=== PATIENT | male | born 1975 | race Caucasian/White ===

== ENCOUNTER 2018-01-25 16:53 | Emergency (ER) | payer OTHER, SELFPAY ==
[2018-01-25 16:58] VITALS: BP 128/76; PULSE 55; RESP 18; TEMP 36.8; O2SAT 97; BMI 29.2
[2018-01-25] MEDS: TET,DIPH,PERTUSS(ACELL),VAC/PF 0.5 ML SYRINGE IM (17:29)
--- NOTE | 2018-01-25 18:16 | ED_ITS ---
HPI - Wound/Laceration <LIVIER Lozano - Last Filed: 01/25/18 19:03> General Chief Complaint: Wound/Laceration Stated Complaint: gash above right eye Time Seen by Provider: 01/25/18 17:11 Source: patient and family Mode of arrival: ambulatory Limitations: no limitations History of Present Illness HPI narrative: This 42-year-old male who presents with chief complaint laceration above his right eye. He states this happened a problem 2 o'clock this afternoon. He states he took an elbow to the face while playing [employer]. He denies any loss of consciousness. Denies any headache dizziness or concussion symptoms. He denies having had a concussion from this. He is not sure when his last tetanus was. He denies any nausea vomiting diarrhea. He states he was going to Super glue the laceration at home but then his requested he come in. He states he bandaged it up. Related Data Allergies Allergy/AdvReac Type Severity Reaction Status Date / Time No Known Drug Allergies Allergy Verified 01/25/18 17:27 Review of Systems <LIVIER Lozano - Last Filed: 01/25/18 19:03> Review of Systems GENERAL: Denies chills, fatigue, malaise, fever, sweats. HEENT: Denies sinus pain, ear pain, sore throat, difficulty swallowing, dizziness. RESPIRATORY: Denies dyspnea, cough, wheezing, hemoptysis, sputum. CARDIOVASCULAR: Denies chest pain, palpitations, orthopnea, edema, GASTROINTESTINAL: Denies nausea, vomiting, abdominal pain, diarrhea, constipation, melena. : Denies dysuria, frequency, incontinence, hematuria, urinary retention. MUSCULOSKELETAL: denies weakness, joint pain, or bony pain SKIN: See HPI NEUROLOGIC: See HPI PSYCHIATRIC: No concerning psychosocial issues. 12 point review of systems is negative except for those stated above Exam <LIVIER Lozano - Last Filed: 01/25/18 19:03> Narrative Exam Narrative: GENERAL: This is a well-nourished, well-developed patient, in no acute distress. HEAD: Atraumatic. Normocephalic. No temporal or scalp tenderness. No pain to palpation of facial bones. EYES: Pupils equal round and reactive. Extraocular motions intact. No scleral icterus. No injection or drainage. ENT: Nose without bleeding, purulent drainage or septal hematoma. Throat without erythema, tonsillar hypertrophy or exudate. Uvula midline. Airway patent. NECK: Trachea midline. No JVD or lymphadenopathy. Supple, nontender, no meningeal signs. CARDIOVASCULAR: Regular rate and rhythm without murmurs, gallops, or rubs. RESPIRATORY: Clear to auscultation. Breath sounds equal bilaterally. No wheezes , rales, or rhonchi. GASTROINTESTINAL: Abdomen soft, non-tender, nondistended. No hepato-splenomegaly , or palpable masses. No guarding. EXTREMITIES: No clubbing, cyanosis, or edema. No joint tenderness, effusion, or edema noted. BACK: Nontender without deformity or crepitance. No flank tenderness. NEURO: AOx3. No slurred speech. Stable on feet. SKIN: 1.5 cm well-approximated laceration just above right eyebrow. Slight curve noted. Upon initial examination, bleeding is controlled. Laceration appears to have scabbed over other than top 3 mm of laceration. No obvious foreign bodies. No tendon or muscle involvement. Initial Vital Signs Initial Vital Signs: Vital Signs Temperature 98.2 F 01/25/18 16:58 Pulse Rate 55 L 01/25/18 16:58 Respiratory Rate 18 01/25/18 16:58 Blood Pressure 128/76 01/25/18 16:58 Pulse Oximetry 97 01/25/18 16:58 <Sola Magaña DO - Last Filed: 01/26/18 08:17> Initial Vital Signs Initial Vital Signs: Vital Signs Temperature 98.2 F 01/25/18 16:58 Pulse Rate 55 L 01/25/18 16:58 Respiratory Rate 18 01/25/18 16:58 Blood Pressure 128/76 01/25/18 16:58 Pulse Oximetry 97 01/25/18 16:58 Procedures <VIPIN Lozano - Last Filed: 01/25/18 19:03> Laceration Repair Laceration 1: Side (If applicable): right Size (cm): 1.5 Description: linear Depth: simple, single layer Pre-repair: wound explored and irrigated extensively (cleansed with sterile water as well as hibiclense) Skin layer closed with: other (dermabond) Course <VIPIN Lozano - Last Filed: 01/25/18 19:03> Orders Ordered: Discontinued Medications Diphtheria/Tetanus/Acell Pertussis (Adacel) 0.5 ml IM .ONCE ONE Stop: 01/25/18 17:28 Last Admin: 01/25/18 17:29 Dose: 0.5 ml Vital Signs - 8 hr 01/25/18 16:58 Temperature 98.2 F Pulse Rate 55 L Respiratory Rate 18 Blood Pressure 128/76 Pulse Oximetry 97 <Sola Magaña DO - Last Filed: 01/26/18 08:17> Orders Ordered: Discontinued Medications Diphtheria/Tetanus/Acell Pertussis (Adacel) 0.5 ml IM .ONCE ONE Stop: 01/25/18 17:28 Last Admin: 01/25/18 17:29 Dose: 0.5 ml Vital Signs - 8 hr 01/25/18 16:58 Temperature 98.2 F Pulse Rate 55 L Respiratory Rate 18 Blood Pressure 128/76 Pulse Oximetry 97 MDM - Wound/Laceration <JEWELS LozanoP- - Last Filed: 01/25/18 19:03> [facility] Narrative Medical decision making narrative: Patient presented with chief complaint of laceration above his eye. He is not sure when his last tetanus was so it was updated. He declined any imaging and states he does not feel he has a concussion. He is alert oriented and appropriate so I will respect his wishes. Of note my initial exam the laceration was no longer bleeding and appeared to have scabbed over. This opened when I washed it out. A Dermabond closure was selected given the linear and facial nature of his wound. He tolerated Dermabond without any complications. I discussed at length monitoring for signs and symptoms of infection such as redness pus or fever. He had no questions or concerns upon discharge. Discharge Plan Departure Patient Disposition: Home Clinical Impression: Laceration Discharge Date/Time: 01/25/18 18:24 Interventions: ED Discharge Assessment Last Done: 01/25/18 18:23 Instructions: DI for Laceration Repair With Dermabond Activity Restrictions/Additional Instructions: Monitor your laceration for signs and symptoms of infection including pus, erythema and fever. Please follow-up if any of those occur. I have given you instructions for laceration repair with Dermabond. I would avoid jujitsu for a few days to allow your laceration heal. Please follow-up with primary care provider for any worrisome signs or symptoms. Referrals: [facility] [Provider Group] <Sola Magaña DO - Last Filed: 01/26/18 08:17> Cosign ED Attending Gloria Attestation: I was immediately available in the department for consultation. Documentation has been reviewed. I agree with assessment and plan.
--- NOTE | 2018-01-28 17:30 | PC.NURSE ---
follow up call, pt feeling better, reporting he has worsening hearing, sxs before injury, pt understanding following up with primary to get referral to survey instrument operator. no questions and no improvement needed
== END 2018-01-25 18:24 | disposition home or self-care (01) ==
PROVIDERS: Emergency Provider Nurse Practitioner Family
DX: S01.111A Laceration without foreign body of right eyelid and periocular area, initial encounter (principal); W50.0XXA Accidental hit or strike by another person, initial encounter; Y93.75 Activity, martial arts
CPT/HCPCS: 12011; 90471; 99283; 90715

== ENCOUNTER → 2018-02-01 09:22 | Outpatient (CLI) | payer OTHER, SELFPAY ==
--- NOTE | 2018-02-01 | DI.MRI.S_ITS ---
PROCEDURE: MR KNEE RT WO CON INDICATIONS: PAIN IN RIGHT KNEE TECHNIQUE: Noncontrast sagittal PD fast spin echo and T2 fast spin echo with fat saturation, sagittal 3-D FLASH with fat saturation; coronal T1 spin echo and PD fast spin echo with fat saturation, and axial PD fast spin echo with fat saturation through the knee. COMPARISON: None. FINDINGS: Image quality: Excellent. Menisci: Medial meniscus appears intact. There is irregularity of the body and anterior horn of lateral meniscus. Additionally, there is heterogeneous low signal focus measuring approximately 8-9 mm seen adjacent to the anterior horn on image 10 series 8. This could represent atypical lateral meniscal fragment, although differential includes rupture of the transverse ligament which is not well visualized. Cruciate ligaments: The anterior and posterior cruciate ligaments appear intact. Medial structures: The medial collateral ligament appears intact. The posterior oblique ligament, semimembranosus tendon insertions, oblique popliteal ligament, and meniscocapsular junction appear intact. Visualized portions of the pes anserinus tendons appear normal. No abnormal bursal fluid. Lateral structures: The lateral collateral ligament appears thickened with internal signal change, technically indeterminate however suggest sprain. The long and short heads of the biceps femoris tendon appear intact. The popliteus tendon appears normal; the popliteofibular ligament appears intact. The posterosuperior and anteroinferior popliteomeniscal fascicles appear intact. The arcuate and fabellofibular ligaments appear intact, on either side of the lateral inferior geniculate artery. Iliotibial band appears normal. Anterior structures: Quadriceps tendon appears intact. There is low-grade proximal and distal patellar tendinopathy. Mild adjacent prepatellar edema. Minimal fluid seen within the deep infrapatellar bursa. Patellar alignment is normal. No femoral trochlear dysplasia or ventral trochlear prominence. No edema in the infrapatellar fat pad. Bones and cartilage: No bone marrow contusions or fractures. Within the medial compartment. Articular cartilage appears grossly intact. Within the lateral compartment, there is mild surface fraying and low-grade partial-thickness loss of the tibial articular cartilage. No definite focal defect. Femoral cartilage appears grossly intact. Within the patellofemoral compartment, no definite focal articular cartilage defect is seen. Joint space: Partially ruptured Barkley's cyst as is seen measuring 6.2 cm in the cephalocaudad dimension. No definite intra-articular loose bodies identified. Moderate joint effusion IMPRESSION: Lateral meniscal tear involving anterior horn and body. Prominent heterogeneous low signal structure seen anterior/adjacent to the anterior horn of lateral meniscus. This could represent unusual appearance of displaced lateral meniscal fragment, however differential includes rupture of the transverse ligament. Theoretically, arthrofibrosis is also in the differential. Please correlate clinically and if clinically required with arthroscopic evaluation. Age-indeterminate sprain of the proximal lateral collateral ligament. Mild degenerative joint disease as above. Partially ruptured Barkley cyst. Moderate joint effusion Mild proximal and distal patellar tendinopathy. Dictated by: Hernandez Cortes M.D. on 02/01/2018 at 10:21 Approved by: Hernandez Cortes M.D. on 02/01/2018 at 10:35
== END ==
PROVIDERS: PCP General Practice; Visit Provider General Practice
DX: S83.281A Other tear of lateral meniscus, current injury, right knee, initial encounter (principal); S83.421A Sprain of lateral collateral ligament of right knee, initial encounter; M17.11 Unilateral primary osteoarthritis, right knee; M25.561 Pain in right knee; M25.461 Effusion, right knee
CPT/HCPCS: 73721

== ENCOUNTER 2019-03-04 13:23 | Inpatient (IN) | payer OTHER, SELFPAY ==
[2019-03-01 12:39] VITALS: BMI 30.4
[2019-03-04] VITALS (9 sets, daily range): BP systolic 139–164; BP diastolic 87–109; PULSE 52–85; RESP 10–16; TEMP 36.5–36.9; O2SAT 94–100; BMI 30.4; BMI 31.7
--- NOTE | 2019-03-04 | DI.RAD.S_ITS ---
PROCEDURE: XR CERVICAL SPINE 2V OR 3V INDICATIONS: C5-6, C6-7 ANTERIOR DISCECTOMY TECHNIQUE: Fluoroscopic images were obtained during an operative procedure and submitted for interpretation following the completion of the procedure. COMPARISON: [facility] Outside Film, RG, SPINE CERVICAL MIN 4VW, 08/16/2018, 8:31. [facility] Outside Film, MR, MR CERVICAL SPINE WITHOUT CONTRAST, 12/10/2018, 14:23. [facility], , CERVICAL SPINE INTERLAMINAR, 02/02/2019, 10:37. FINDINGS: These fluoroscopic images were performed for intraoperative localization. On these images, 2 levels above artificial discs can be seen involving the lower cervical spine, at the C5-C6 and C6-C7 levels. Please correlate with intraoperative findings. IMPRESSION: Normal intraoperative examination. Dictated by: Scot Franz M.D. on 03/04/2019 at 15:27 Approved by: Scot Franz M.D. on 03/04/2019 at 15:28
[2019-03-04] MEDS: LACTATED RINGERS 1,000 ML 42 ML IV (13:51)
--- NOTE | 2019-03-04 13:56 | PM.PREOP ---
Pre-operative Note Interval Note History & Physical reviewed/Exam performed by Physician: Yes Changes to H&P: No
--- NOTE | 2019-03-04 13:56 | PM.OP.1 ---
Operative Date/Time/Diagnoses Date of procedure: 03/04/19 Time of procedure: 15:53 Pre-op diagnosis: cervical disc herniation with radiculopathy Post-op diagnosis: same Procedure & Clinicians Procedure: C5-6 and C6-7 anterior diskectomy an artificial disc replacement Use of microscope Same procedure as scheduled: Yes Indications: [age] year old male with intractable pain from disc herniations. They had failed conservative management and requested operative intervention. Risks and benefits of surgery were discussed and appropriate consents were obtained. Surgeon: Vasquez Cabello Lumber Tying Machine Operator: Andra Jarrett Anesthesia Type: General Operative Notes Findings: None Closure Type: primary Specimen(s): none sent Prosthetic devices, grafts, tissues, transplants, or devices: Lila mobi-c Estimated Blood Loss (mL): 5 Blood products transfused: none Procedure in detail: Patient was brought to the operating room and intubated on the table. A time-out was performed. Preoperative antibiotics were given. The neck was prepped and draped in the standard sterile fashion. Using a skin fold, we made a 3 cm oblique incision on the left side. We used Bovie to go through the platysma and then did a standard anterolateral blunt dissection down to the precervical fascia. Fascia was nicked and elevated up. A marker was placed and x-ray was taken for localization. We then subperiosteally elevated up the longus colli muscles. Self-retaining retractors were placed. [place] pins were placed under x-ray guidance to be parallel to the endplates. We then brought in the microscope. A scalpel used to perform an annulotomy. We then used a combination of pituitaries and curettes and Kerrison to perform a complete anterior diskectomy at C6-7. We took down the PLL and used Kerrison to remove any posterior disc material and osteophytes. At the end we could from the nerve hook cephalad caudally and out the foramen and everything was opened. We distracted open with the parallel access services librarian. We then used the horseshoes for sizing. We then used the trials. We then inserted a 17 x 17 x 5 mm size Mobi-C artificial disc replacement under fluoroscopic guidance for positioning. The traction was released and x-ray was checked again. The self-retaining retractors and [place] pins were removed and x-rays taken. We then went up to C5-6. Again a complete diskectomy was performed, taking down the PLL. We removed all posterior disc and osteophyte material. We checked with the nerve hook to make sure everything was open. We trialed and then placed a 15 x 17 x 5 mm size Mobi-C artificial disc replacement under fluoroscopic guidance for positioning. The traction was released and x-rays were checked again. All the retractors removed and final x-rays were taken. The wound was irrigated. There was no bleeding. The carotid was beating nicely. The platysma was closed. The superficial was closed. The skin was closed. A sterile dressing was placed. They were then extubated and brought to recovery room with no complications. Complications: none Post-operative Condition: stable Disposition: PACU Plan for aftercare: Overnight admission. Should be fine for discharge tomorrow.
[2019-03-04] MEDS: CEFAZOLIN 2 GM/100 ML FROZ.PIGGY IV ×2 (14:20→21:10)
--- NOTE | 2019-03-04 14:46 | SUR.OPER ---
Supine, head on gel donut. Arms padded with gel pads, tucked at sides, towel roll under shoulders. Safety belt at thigh. Legs uncrossed.
[2019-03-04] MEDS: BUPIVACAINE 0.25% W/ EPI 30 ML VIAL 60 ML INJ (14:50)
[2019-03-04] MEDS: SODIUM CHLORIDE 0.9% 1,000 ML, GENTAMICIN 80 MG IRR (14:51)
[2019-03-04] MEDS: THROMBIN (RECOMBINANT) 5,000 UNIT VIAL 5000 UNIT TOP (14:51)
[2019-03-04] MEDS: hydrOXYzine 50 MG/ML INJ 25 MG IM (16:29)
[2019-03-04] MEDS: fentaNYL 100 MCG/2 ML INJ IV (16:30)
--- NOTE | 2019-03-04 16:40 | SUR.PHASEI ---
DR STANFORD IS AWARE OF HIGH BP, WILL CONTINUE TOO WATCH BUT NO TREATMENT AT THIS TIME, OK TO SEND PT TOO ROOM. REPORT CALLED TO [facility] POWE[facility] ON ACUTE CARE. CERVICAL COLLAR REMAINS ON, DRESSING REMAINS DRY AND INTACT, NO SWELLING OR REDNESS NOTED, STRONG AND EQUAL HAND MEDICAID BILLING SPECIALIST, NO NEURO DEFICITS NOTED.
[2019-03-04] MEDS: LACTATED RINGERS 1,000 ML 125 ML IV (17:09)
[2019-03-04] MEDS: NAPROXEN 250 MG TABLET 500 MG PO (17:12)
[2019-03-04] MEDS: HYDROCODONE/ACET 5/325 TABLET 2 TAB PO ×2 (17:12→21:10)
[2019-03-04] MEDS: DOCUSATE 100 MG CAPSULE PO (21:10)
[2019-03-04] MEDS: GABAPENTIN 300 MG CAPSULE PO (21:10)
[2019-03-04] MEDS: SENNOSIDES 8.6 MG TABLET 17.2 MG PO (21:10)
[2019-03-05 01:00] VITALS: BP 133/74; PULSE 70; RESP 17; TEMP 36.9; O2SAT 96
[2019-03-05] MEDS: HYDROCODONE/ACET 5/325 TABLET 2 TAB PO ×2 (01:23→06:35)
[2019-03-05] MEDS: LACTATED RINGERS 1,000 ML 125 ML IV (02:15)
[2019-03-05 05:47] VITALS: BP 132/75; PULSE 60; RESP 16; TEMP 36.6; O2SAT 95
[2019-03-05] MEDS: CEFAZOLIN 2 GM/100 ML FROZ.PIGGY IV (06:31)
[2019-03-05 07:30] VITALS: BP 141/90; PULSE 66; RESP 16; TEMP 36.8; O2SAT 95
--- NOTE | 2019-03-05 07:57 | PM.PNPO.1 ---
Subjective Subjective Date Patient Seen: 03/05/19 Time Patient Seen: 07:57 Interval history: He is doing very well. No more arm symptoms. Pain is well managed Exam Vital Signs (past 8 hours): - 03/05/19 01:00 03/05/19 05:47 Temperature 98.4 F 97.8 F Pulse Rate 70 60 Respiratory Rate 17 16 Blood Pressure 133/74 132/75 Pulse Oximetry 96 95 Oxygen Delivery Method Nasal Cannula Oxygen Flow Rate 0 Const Orientation: alert and oriented x3 Back/Spine/Pelvis Other: CDI. 5/5 motor both upper extremities Assessment & Plan Post-op Postoperative Procedures: Procedures Operation Date: 03/04/19 14:45 Actual Procedures Side Surgeon p C56 & C67 anterior discectomy & Artificial Disc Replacement Vasquez Cabello MD he is doing very well. Plan for discharge home.
[2019-03-05] MEDS: DOCUSATE 100 MG CAPSULE PO (09:04)
[2019-03-05] MEDS: NAPROXEN 250 MG TABLET 500 MG PO (09:04)
--- NOTE | 2019-03-05 09:04 | PT.IIE ---
Current Diagnoses Other cervical disc displacement, unspecified cervical region (03/04/19) Other cervical disc degeneration, unspecified cervical region (03/04/19) Strain of muscle, fascia and tendon at neck level, subsequent encounter (03/04/19) Surgery Performed Operation Date: 03/04/19 14:45 Actual Procedures p C56 & C67 anterior discectomy & Artificial Disc Replacement - Vasquez Cabello MD Surgical History (Last Updated 03/01/19 @ 13:08 by Jayleen Newsome RN) H/O wrist surgery (Acute) Hx of arthroscopy of right knee (Acute) S/P epidural steroid injection (Acute 02/02/19) S/P epidural steroid injection (Acute) Medical History (Last Updated 03/01/19 @ 13:08 by Jayleen Newsome RN) Arthritis (Acute) Hearing loss (Acute) Tinnitus (Acute) Physical Therapy Inpatient Evaluation/Re-Eval M1 PT/OT-IP Prior Functional Status Start: 03/05/19 08:47 Freq: NEEDED Status: Discharge Protocol: Document 03/05/19 08:46 DCW (Rec: 03/05/19 09:13 DCW [id number]) Medical Review Prior Functional Status Medical History Reviewed Yes Mobility and Gait Independent Activities of Daily Living and IADL's Independent Social History Household Members spouse Living Arrangements House Number of Floors (Floors) Two Floors Home Equipment Straight Cane M2 PT-IP Current Condition Start: 03/05/19 08:47 Freq: NEEDED Status: Discharge Protocol: Document 03/05/19 08:46 DCW (Rec: 03/05/19 09:13 DCW [id number]) Physical Therapy Current Condition Current Condition Evaluation Date 03/05/19 Treatment Diagnosis C56 & C67 anterior discectomy & Artificial Disc Replacement Onset Date 03/04/19 Precautions Cervical Spine Precautions Soft Collar for Comfort Weight Bearing Status Weight Bearing Status Full Weight Bearing M3 PT-IP Subjective Start: 03/05/19 08:47 Freq: NEEDED Status: Discharge Protocol: Document 03/05/19 08:46 DCW (Rec: 03/05/19 09:13 DCW [id number]) Subjective Physical Therapy Visit Type Type Initial Evaluation Visit Start Time 08:46 Visit Stop Time 09:04 Total Visit Minutes 18 Physical Therapy Visit Comments Patient Comments Pt noted he was feeling better following surgery, maybe some slight heaviness in the legs after laying around so long. Patient Goals Going home. Therapy Pain Assessment Pain When Pain Assessed During Mobility Pain Present Pain Present Pain Reported Location neck/traps Intensity 4 Scale Used Numeric (1 - 10) M4 PT-IP Mobility and Gait Start: 03/05/19 08:47 Freq: NEEDED Status: Discharge Protocol: Document 03/05/19 08:46 DCW (Rec: 03/05/19 09:13 DCW [id number]) PT-Bed Mobility Assessment Scooting Scooting to Edge of Bed Independent Scooting Up and Down in Bed Independent PT-Transfer Assessment Sit to and From Stand Sit to and from Stand Independent Equipment Transfer Assistive Device None Orthotic/Prosthetic Devices or Brace: No Transfer Ability Level of Assist Independent Gait Assessment Gait Gait Assistance Required: Independent Distance (Feet) 500 Able to Maintain Weight Bearing Status No During Gait Assistive Devices Assistive Device None Gait Deviations General Gait Pattern Within Normal Limits Stair Climbing Assessment Evaluation Level of Assist On Stairs Independent Devices Stair Climbing Assistive Devices None,Right Railing Technique/Endurance Stair Climbing Direction Ascend and Descend Stair Climbing Technique Step Over Step Number of Steps Climbed 3 Query Text: Stair Climbing Set # Repetitions (reps) 2 Comments Stair Climbing Comments One set with R ascending rail, one set no rail PT-Balance Assessment Sitting Balance and Reactions Static Sitting Balance Ability Normal Dynamic Sitting Balance Ability Normal Standing Balance and Reactions Static Standing Balance Ability Normal Dynamic Standing Balance Ability Good M5 PT-IP Objective Assessments Start: 03/05/19 08:47 Freq: NEEDED Status: Discharge Protocol: Document 03/05/19 08:46 DCW (Rec: 03/05/19 09:13 DCW [id number]) Orientation Orientation/Cognition Level of Alertness Alert Orientation Name,Birthday,Date,Place, Situation Language Function Ability No Deficits Noted Safety Awareness Understands Safety Issues Memory Description No Deficits Noted Gross Range of Motion Upper Extremity ROM Assessment Within Functional Limits Lower Extremity ROM Assessment Within Functional Limits Strength Upper Extremity Strength Assessment Within Functional Limits Shoulder 4+/5 Elbow 5/5 Lower Extremity Strength Assessment Within Functional Limits Hip 5/5 Knee 5/5 Ankle 5/5 Coordination Assessment Gross Coordination Gross Coordination WNL M6 PT-IP Treatment Start: 03/05/19 08:47 Freq: NEEDED Status: Discharge Protocol: Document 03/05/19 08:46 DCW (Rec: 03/05/19 09:13 DC [id number]) Physical Therapy Treatment Other Treatments Other Treatment Performed Ambulated ~500' in mcdaniel, ascended/descended 3 steps x2 independently M7 PT-IP Assessment and Plan Start: 03/05/19 08:47 Freq: NEEDED Status: Discharge Protocol: Document 03/05/19 08:46 DCW (Rec: 03/05/19 09:13 [facility] [id number]) PT Summary Assessment and Plan Potential Rehabilitation Potential Excellent Status of Condition at Evaluation Stable Summary Impairments Pain Assessment Summary Pt is a 43 year old male POD # 1 following C56 & C67 anterior discectomy & Artificial Disc Replacement. Pt is doing very well, alert and oriented, independent with bed mobility, transfers, ambulation, and stairs. Pt has no need for continued in-patient therapy, and will likely discharge from the hospital this morning. Pt was left in bed with his and nursing in the room. Frequency of Treatment Frequency Of Treatment Discharge Discharge Recommendations PT Discharge Recommendations Home
[2019-03-05] MEDS: INFLUENZA VACCINE 0.5 ML SYRINGE IM (09:10)
--- NOTE | 2019-03-05 09:42 | PC.NURSE ---
Pt is dressed and ready for discharge home with Spouse. Pt IV has been removed and Pt is wearing his soft collar. Went over d/c instructions with Pt and Spouse-discussed d/c meds, time of last dose, reviewed stroke education, signs and symptoms of infection, follow up, no bending, lifting or twisting and no weight greater than 10 pounds. Pt denies further questions and was taken out via w/c by MIDDLE SCHOOL GUIDANCE COUNSELOR with Spouse and all belongings.
--- NOTE | 2019-03-05 10:18 | CM.DANOTE ---
DCP Assessment: EMR review: patient is a 43 yr old male who was admitted for Cervical Fusion Anterior preformed by Dr. Morales. PCP is Dr. Overton. CM met with Patient and patients at the bedside and explained CM/RN role. Patient was alert and oriented x3 at time of CM meeting. Patient currently live with his Debra in a two story home. Patient had his PT evaluation and there recommendation is home with family when medically stable. Patient has a cane and FWW at home if needed. Patient is I for all ADL's and drives at baseline. Insurance: 1st: Prime 2nd: self pay Plan: D/C home when medically stable with family. No D/C planning needs noted at this time. CM department will follow until d/c to insure no D/c needs arise. Lilian Rocha RN. Discharge Planning/Care Management CM Discharge Assessment Start: 03/05/19 10:16 Freq: Status: Active Protocol: Document 03/05/19 08:20 HS (Rec: 03/05/19 10:18 HS [id number]) Discharge Planning Assessment Assigned Thermo Cementing Folder Operator Lilian Rocha Rn DPOA/Assigned Designee Name Debra Schrader () Contact Information [phone] Advance Directives? No History Provided By Patient,Family Member Has Patient been admitted in last 30 No days? Prior Living Arrangements House Household Members spouse Type of transporation used prior to Drives own vehicle admit Independent with ADL's Yes Is patient alert and oriented? Yes Caregiver for Another No DME Already Rented / Owned FWW / Walker,Cane Patient/Family Preference OP PT Therapy Comment OP pt will be set up by Dr morales office after patients f/u post op visit 03/14/2019 Barriers to Discharge No Discharge Plan Home Whiteboard Updated in Patient Room with Yes name and ext. # of Thermo Cementing Folder Operator Review Status In Process Next Review Type Continued Stay Review Pre-Anesthesia Assessment Start: 03/01/19 12:39 Freq: Status: Complete Protocol: Document 03/01/19 12:39 CAB (Rec: 03/01/19 13:17 CAB [id number]) Pre-Anesthesia Assessment Patient Information Reviewed Via Phone Assessment Assessment Completed With Patient H&P Completed Within 30 Days Yes Comment Outside labs scanned to record Primary Care Provider Evert Overton Seen Specialist in Last 12 Months Yes Specialist Seen Orthopedist Primary Language French Height 177.8 cm Weight 96.162 kg Body Mass Index (BMI) 30.4 Hearing Ability Normal Visual Impairment No Limitations Visual Assist None Dentition Type Teeth, Natural Present Barriers to Learning None Other Aids No Hx Anesthesia Reactions No Hx Family Anesthesia Reaction No Hx Malignant Hyperthermia No Hx Blood Transfusions No Anesthesia Review Requested No alcohol intake current alcohol intake frequency holidays/special occasions only Smoking Status Former smoker how long ago did patient quit smoking Quit 2000 Substance Use Type does not use Pain Present Pain Reported Musculoskeletal Symptoms Limited Range of Motion,Muscle Weakness,Numbness,Radiating Pain into Limb History of Falling (Recent or History of No ) Patient is completely paralyzed or No completely immobile Mental Status Oriented to own ability Is patient on oxygen? No Does patient have BATES/SOB No Hx Sleep Apnea No Currently Taking a Beta Ric No Can You Climb a Flight of Stairs Without Yes SOB Hx Chest Pain No Hx SOB No Hx Syncope or Dizziness No Anti-Coagulant Therapy No Has a Fitter Tacker No Cardiac Testing No Hx Pacemaker/ICD No Pacemaker Rep Required? No Cardiac Clearance Received Not Applicable Diet Type At Home Regular dysphagia No Urinary Catheter Present No Hx Urinary Self Catheterization No Diabetes No Hx Drug Resistant Organism No Presence of External or Internal Medical No Devices Have you traveled outside the [facility] States in the last 30 days? Marital Status Lives With spouse Prior Living Arrangements House Number of Floors (Floors) Two Floors Support System Spouse Does the Patient Have Assistance After Yes Surgery Patient Discharge Plan Description Return Home Comment Pt not advised on length of stay per surgeon Feels Safe in Current Environment Yes Been Physically Hurt or Threatened By a No Person in Current Environment Do you have thoughts of harming yourself None or others? Are you currently considering suicide? No Do you have a plan to hurt yourself or No Plan others? Do You Have Any Spiritual Beliefs That No May Affect Your HC Choices? Do You Have Any Cultural Practices That No May Affect Your HC Choices? Who Can We Speak to About Patient's Care Family, friends Identifying Code for Release of Patient Declines to issue Information Health Care Proxy/Next of Kin Debra () Health Care Proxy Emergency Contact Name Debra () Emergency Contact Advance Directives? No Power of Gang Ripsaw Operator No PAC Instructions Durable medical equipment, Medications to take/avoid, Nasal antibiotic,No ETOH/ petroleum product on skin DOS, NPO,Post-op transportation,Pre -surgical wash,Sturdy shoes/ comfortable clothes,Do not bring valuables and remove jewelry
== END 2019-03-05 09:45 | disposition home or self-care (01) | DRG 518 ==
PROVIDERS: Admitting Provider Orthopaedic Surgery; Family Provider Orthopaedic Surgery; PCP General Practice; Visit Provider Orthopaedic Surgery
PROC: 0RR30JZ Replacement of Cervical Vertebral Disc with Synthetic Substitute, Open Approach (ICD-10-PCS; principal; 2019-03-04 14:45)
DX: M50.122 Cervical disc disorder at C5-C6 level with radiculopathy (principal); M50.30 Other cervical disc degeneration, unspecified cervical region; Z87.891 Personal history of nicotine dependence
CPT/HCPCS: 72040; 76000; 90471; 90656; 97161; C1776; J0330; J0690; J2250; J2704; J3010; J3410; Q2038

== ENCOUNTER → 2020-01-15 10:21 | Outpatient (CLI) | payer OTHER, SELFPAY ==
[2019-03-04 16:57] VITALS: BMI 31.7
[2020-01-16 09:41] LABS: COVID19 Sendout Not Detected (Not Detect)
== END ==
PROVIDERS: Family Provider Orthopaedic Surgery; PCP General Practice; Visit Provider Nurse Practitioner
DX: Z11.59 Encounter for screening for other viral diseases (principal)
CPT/HCPCS: 87635

== ENCOUNTER 2020-01-18 08:22 | Day surgery (SDC) | payer OTHER, SELFPAY ==
[2019-03-04 16:57] VITALS: BMI 31.7
[2020-01-13 09:48] VITALS: BMI 37.4
[2020-01-18] VITALS (8 sets, daily range): BP systolic 106–130; BP diastolic 62–83; PULSE 54–71; RESP 11–17; TEMP 36.4–36.7; O2SAT 90–98; BMI 35.6
[2020-01-18] MEDS: LACTATED RINGERS 1,000 ML 42 ML IV ×2 (09:02→11:11)
--- NOTE | 2020-01-18 09:21 | PM.PREOP ---
Pre-operative Note COVID-19 COVID-19 status: Negative Result date/Date tested (Pos, Neg/Pending): 01/15/20 Interval Note History & Physical reviewed/Exam performed by Physician: Yes Changes to H&P: No
--- NOTE | 2020-01-18 09:22 | P.OP_ITS ---
Operative Date/Time/Diagnoses Date of procedure: 01/18/20 Time of procedure: 11:23 Pre-op diagnosis: High-grade partial-thickness tearing of the rotator cuff right shoulder Post-op diagnosis: other ( Minimal partial-thickness tearing of the supraspinatus tendon right shoulder) Procedure & Clinicians Procedure: right shoulder arthroscopy with subacromial decompression and debridement of rotator cuff tear Same procedure as scheduled: Yes Indications: The patient presents today for right shoulder arthroscopy. MRI shows probable rotator cuff tear. Repair as indicated by intraoperative findings. The nature of the procedure including the risks and benefits, alternatives, postoperative course and expected outcome were discussed and all questions answered. Consent was obtained. Operative site confirmed and marked. Surgeon: Darrell Quach Cable Dispatcher: Taj Forte Anesthesia Type: General and Peripheral nerve block Operative Notes Findings: Examination under anesthesia was unremarkable. Arthroscopic evaluation of the glenohumeral space revealed a normal appearing biceps tendon with no tearing. The labrum attachment was medial but there was no evidence of any tearing or instability. No significant chondromalacia was noted. There was a small flap of the supraspinatus tendon which was debrided. There was no exposed rotator cuff footprint. The rotator cuff tearing appeared mild and less than 25% of the thickness of the cuff. Examination of the subacromial space revealed significant bursitis. There was some prominence of the anterior acromion. A standard acromioplasty was performed with a bur. This nicely decompressed the subacromial space. The AC joint capsule was competent. The AC joint did not impinge into the rotator cuff. There was no evidence of any bursal sided rotator cuff tearing. no distal clavicle excision was performed. The subacromial space was nicely decompressed by the end of the procedure. Closure Type: primary Specimen(s): none sent Estimated Blood Loss (mL): 5 Blood products transfused: none Procedure in detail: The patient was taken the operative suite and placed under [anesthesia] and given prophylactic antibodies prior to surgery. The patient was then positioned in the lateral decubitus position on a beanbag and with an axillary roll. The arm was suspended with 10 pounds of weight. The acromion and coracoid as well as the expected portal sites were all marked. The shoulder was then injected with 20 mL of 1% lidocaine with epinephrine. The arm was then prepped and draped in usual sterile fashion. The joint was then filled with 20 mL of saline through the proposed posterior portal site. The posterior portal was then established and the scope placed bluntly into the glenohumeral joint. An anterior portal was then established from an outside in technique with a spinal needle. The glenohumeral joint was then inspected (see findings above). The scope was then switched to the subacromial space. A standard bursectomy and anterior/lateral chondroplasty was performed with a shaver and bur. The subacromial space was well decompressed. The arthroscopy was then completed and the shoulder drained. The portal sites were closed with interrupted 3-0 nylon suture. Subacromial space was filled with [20 mL of 0.5% ropivacaine and 4 of morphine]. Sterile gauze dressings were then applied. The shoulder was placed into a sling. The patient tolerated the procedure well and was returned recovery room in good condition. Complications: none Post-operative Condition: stable Disposition: same day surgery Plan for aftercare: sling for comfort. Progress range of motion strength as tolerated. Follow up in 2 weeks.
--- NOTE | 2020-01-18 10:00 | SUR.PREOP ---
Block start time [0955] . Monitoring initiated and maintained throughout procedure. Oxygen given per anesthesiologist instructions and medications given by anesthesiologist. Patient remained stable throughout procedure, no adverse reactions noted. Block end time [1000].
--- NOTE | 2020-01-18 10:05 | PM.PROC.1 ---
Procedures Date/Time Date of procedure: 01/18/20 Time of procedure: 09:50 General Procedure description: Ultrasound guided interscalene brachial plexus nerve block for post op pain control after right shoulder arthroscopic surgery by Dr. Quach. Risk and benefits of procedure discussed with patient. ASA monitoring applied to patient. O2 given via nasal cannula. 2 mg Versed and 100 mcg fentanyl given for procedural sedation. Skin site was prepped with chlorhexidine and allowed to fully dry. Sterile gloves, mask, hat and probe cover were used to maintain sterility. 2% lidocaine and 30ga needle was used to make a small skin wheal at needle insertion site. Under ultrasound guidance, a 21ga 50mm Pajunk needle was directed into the interscalene groove (middle/anterior scalenes) near the brachial plexus. Patient reported no parasthesias. After negative aspiration, 20 mL 0.5% ropivicaine and 10mg dexamethasone were injected around brachial plexus. Patient tolerated procedure well.
[2020-01-18] MEDS: CEFAZOLIN 2 GM/100 ML FROZ.PIGGY IV (10:08)
--- NOTE | 2020-01-18 10:39 | SUR.OPER ---
Lateral on padded OR bed with hickey bag positioner, head on pillow, gel axillary roll in place, bottom leg bent with gel pad under knee to foot, upper leg straight and supported with pillows. Operative arm secured in shoulder positioning suspension device. non-operative arm secured on padded arm board. Safety belt at hip, tape over blanket securing lower legs.
[2020-01-18] MEDS: SODIUM CHLORIDE IRRIG SOLUTION 3,000 ML, EPINEPHrine 1 MG IRR (10:52)
== END 2020-01-18 12:22 | disposition home or self-care (01) ==
PROVIDERS: Family Provider Orthopaedic Surgery; PCP Physician Assistant; Referring Provider Physician Assistant; Visit Provider Orthopaedic Surgery
PROC: (CPT 29827; principal; 2020-01-18 10:00)
DX: M75.111 Incomplete rotator cuff tear or rupture of right shoulder, not specified as traumatic (principal); M19.011 Primary osteoarthritis, right shoulder; M75.51 Bursitis of right shoulder
CPT/HCPCS: 29822; 29826; 64450; J0171; J0690; J1100; J1885; J2250; J2405; J2704; J3010

== ENCOUNTER → 2022-05-23 13:47 | Outpatient (CLI) | payer OTHER, SELFPAY ==
[2019-03-04 16:57] VITALS: BMI 31.7
--- NOTE | 2022-05-23 13:49 | DI.MRI.S_ITS ---
PROCEDURE: MR KNEE LT WO CON INDICATIONS: Pain in left knee; Right elbow pain TECHNIQUE: Noncontrast sagittal PD fast spin echo and T2 fast spin echo with fat saturation, sagittal 3-D FLASH with fat saturation; coronal T1 spin echo and PD fast spin echo with fat saturation, and axial PD fast spin echo with fat saturation through the knee. COMPARISON: [facility], MR, MR KNEE RT WO CON, 02/01/2018, 9:35. None FINDINGS: Image quality: Excellent. Menisci: Horizontally oriented linear high signal intensity traverses the inner, middle, and peripheral thirds of the posterior horn medial meniscus. Linear oblique high signal intensity traverses the middle and peripheral thirds of the medial meniscal body, demonstrating inferior articular surface extension, indicating oblique tearing. Lateral meniscus is intact. Cruciate ligaments: The anterior and posterior cruciate ligaments appear intact. There is mild posterior bowing of the anterior cruciate ligament, suggestive of chronic partial thickness tearing. Medial structures: The medial collateral ligament appears intact. Visualized portions of the pes anserinus tendons appear normal. No abnormal bursal fluid. Lateral structures: The lateral collateral ligament, long and short heads of the biceps femoris tendon appear intact. The popliteus tendon appears normal. Iliotibial band appears normal. Anterior structures: The quadriceps and patellar tendons appear intact. Mild T2 signal elevation within the quadriceps and patellar tendons at the patellar insertion sites. Patellar alignment is normal. No femoral trochlear dysplasia or ventral trochlear prominence. No edema in the infrapatellar fat pad. Bones and cartilage: No bone marrow contusions or fractures. Moderate articular cartilage loss diffusely overlies the weight-bearing aspects of the medial femoral condyle and medial tibial plateau. Small region of articular cartilage delamination involves the medial aspect of the medial patellar facet. Joint space: There is a small knee joint effusion and a small Barkley's cyst. Normal appearing synovial plicae are incidentally noted. IMPRESSION: 1. Medial meniscal tearing. 2. Medial and patellofemoral compartment articular cartilage loss. 3. Mild quadriceps and patellar tendinopathy. 4. Small knee joint effusion and small Barkley's cyst. Dictated by: Kerline Thorpe M.D. on 05/23/2022 at 15:25 Transcribed by: [place] on 05/23/2022 at 15:28 Approved by: Kerline Thorpe M.D. on 05/23/2022 at 16:53
--- NOTE | 2022-05-23 13:49 | DI.CT.S_ITS ---
PROCEDURE: CT UE RT WO CON INDICATIONS: Right elbow pain TECHNIQUE: Noncontrast 1-1.5 mm axial sections were acquired through the elbow joint, with coronal and sagittal reformats. COMPARISON: None. FINDINGS: Image quality: Excellent. Bones: No acute osseous fracture or dislocation. Degenerative changes are seen throughout the elbow with mild joint space narrowing marginal osteophytes are seen including osteophytes within the olecranon fossa and coronoid fossa that could contribute to osseous impingement. A smaller chronic diffuse fat is present. Soft tissues: Small elbow effusion. Multiple ossified intra-articular loose bodies are seen surrounding the elbow. The articular cartilages, ligaments, and tendons are not well evaluated with standard CT. The musculature surrounding the elbow is well-developed. IMPRESSION: Moderate elbow osteoarthrosis with prominent marginal osteophyte formation and multiple ossified intra-articular loose bodies. Small joint effusion. Approved by: Jose Cartwright M.D. on 05/23/2022 at 15:53
== END ==
PROVIDERS: Family Provider Orthopaedic Surgery; PCP Physician Assistant; Referring Provider Registered Nurse; Visit Provider Registered Nurse
DX: M25.521 Pain in right elbow (principal); M25.421 Effusion, right elbow; M19.021 Primary osteoarthritis, right elbow; S83.242A Other tear of medial meniscus, current injury, left knee, initial encounter; M25.462 Effusion, left knee; M25.562 Pain in left knee; M71.22 Synovial cyst of popliteal space [Baker], left knee
CPT/HCPCS: 73200; 73721

== ENCOUNTER → 2023-11-30 12:08 | Outpatient (CLI) | payer OTHER, SELFPAY ==
[2019-03-04 16:57] VITALS: BMI 31.7
--- NOTE | 2023-11-30 12:09 | DI.MRI.S_ITS ---
PROCEDURE: MR KNEE RT WO CON INDICATIONS: PAIN IN RT KNEE TECHNIQUE: Noncontrast sagittal PD fast spin echo and T2 fast spin echo with fat saturation, sagittal 3-D FLASH with fat saturation; coronal T1 spin echo and PD fast spin echo with fat saturation, and axial PD fast spin echo with fat saturation through the knee. COMPARISON: None. FINDINGS: Image quality: Excellent. Menisci: In the medial meniscus, there is a small undersurface tear of the posterior horn. There is mild extrusion of the medial meniscus body. In the lateral meniscus, the posterior root is not well visualized. There is longitudinal oblique tear of the posterior horn of the lateral meniscus, extending to the meniscus body. There is mild extrusion of the lateral meniscus body. Cruciate ligaments: The anterior and posterior cruciate ligaments appear intact. Medial structures: The medial collateral ligament appears intact. The posterior oblique ligament, semimembranosus tendon insertions, oblique popliteal ligament, and meniscocapsular junction appear intact. Visualized portions of the pes anserinus tendons appear normal. No abnormal bursal fluid. Lateral structures: The lateral collateral ligament, long and short heads of the biceps femoris tendon appear intact. The popliteus tendon appears normal; the popliteofibular ligament appears intact. The posterosuperior and anteroinferior popliteomeniscal fascicles appear intact. The arcuate and fabellofibular ligaments appear intact, on either side of the lateral inferior geniculate artery. Iliotibial band appears normal. Anterior structures: The quadriceps and patellar tendons appear intact. Patellar alignment is normal. No femoral trochlear dysplasia or ventral trochlear prominence. No edema in the infrapatellar fat pad. Bones and cartilage: Cartilage of the patella is unremarkable. Cartilage of the trochlea is grossly unremarkable as well. In the medial compartment, the cartilage is well maintained. In the lateral compartment, there is small area of high-grade chondral loss in the nonweightbearing portion of the lateral femoral condyle, with adjacent mild subchondral marrow edema. There is small area of mild marrow edema in the posterior aspect of the lateral tibial plateau. There are adjacent cystic lesion measuring approximately 1.6 cm containing small loose bodies, likely representing a ganglion cyst (series 7, image 13). There is mild marrow edema in the peripheral aspect of the lateral tibial plateau, favoring reactive. No acute fracture. Joint space: Small knee effusion. Small popliteal cyst. Popliteal vasculature is unremarkable. IMPRESSION: 1. Tear of the medial and lateral meniscus. 2. Mild chondrosis of the lateral compartment with mild subchondral marrow edema. 3. 1.6 cm likely ganglion cyst posterior to the lateral tibial plateau with small loose bodies, and subjacent reactive marrow edema of the posterior lateral tibial plateau. 4. Mild reactive marrow edema of the peripheral aspect of the lateral tibial plateau. Dictated by: Corinna Diego M.D. on 12/01/2023 at 12:15 Approved by: Corinna Diego M.D. on 12/01/2023 at 12:31
== END ==
PROVIDERS: Family Provider Orthopaedic Surgery; PCP Registered Nurse
DX: S83.241A Other tear of medial meniscus, current injury, right knee, initial encounter (principal); S83.281A Other tear of lateral meniscus, current injury, right knee, initial encounter; M94.261 Chondromalacia, right knee; M71.21 Synovial cyst of popliteal space [Baker], right knee; M25.461 Effusion, right knee; M25.561 Pain in right knee
CPT/HCPCS: 73721

== ENCOUNTER → 2025-01-27 13:52 | Outpatient (CLI) | payer OTHER, SELFPAY ==
[2019-03-04 16:57] VITALS: BMI 31.7
--- NOTE | 2025-01-27 | DI.MRI.S_ITS ---
PROCEDURE: MR KNEE LT WO CON INDICATIONS: Lt knee pain and swelling TECHNIQUE: Noncontrast sagittal PD fast spin echo and T2 fast spin echo with fat saturation, sagittal 3-D FLASH with fat saturation; coronal T1 spin echo and PD fast spin echo with fat saturation, and axial PD fast spin echo with fat saturation through the knee. COMPARISON: [facility], MR, MR KNEE RT WO CON, 11/30/2023, 12:16. FINDINGS: Image quality: Excellent. Menisci: Oblique tear involving posterior horn of medial meniscus extending to inferior articulating surface. Oblique tear is also seen involving posterior horn of lateral meniscus extending to inferior articulating surface. Vertical tear involving anterior horn/body junction of lateral meniscus extending to both superior and inferior articulating surfaces. Cruciate ligaments: The anterior cruciate ligament is mildly thickened with intrasubstance T2 hyperintense signal. The posterior cruciate ligament is intact. Medial structures: The medial collateral ligament appears mildly thickened with surrounding soft tissue edema. Visualized portions of the pes anserinus tendons appear normal. No abnormal bursal fluid. Lateral structures: The lateral collateral ligament, long and short heads of the biceps femoris tendon appear intact. The popliteus tendon appears intact. Iliotibial band appears normal. Anterior structures: Distal quadriceps tendinosis. Patellar tendon is intact. Patellar alignment is normal. Bones and cartilage: No bone marrow contusions or fractures. The cartilage of the medial and lateral femorotibial compartments, as well as the patellofemoral compartment, appears normal in thickness. Joint space: There is small knee joint fluid. There is a 3.4 x 2.8 x 5.2 cm Barkley's cyst. Normal appearing synovial plicae are incidentally noted. IMPRESSION: 1. Oblique tear involving posterior horn of medial meniscus extending to inferior articulating surface. 2. Vertical tear involving anterior horn/body junction of lateral meniscus extending to both superior and inferior articulating surfaces. Oblique tear involving posterior horn of lateral meniscus extending to inferior articulating surface. 3. Distal quadriceps tendinosis. 4. Low-grade ACL sprain/intrasubstance partial-thickness tear. No ACL rupture. The PCL is intact. 5. Low-grade MCL sprain. 6. No marrow edema. No fracture or dislocation. Small joint effusion and a Barkley's cyst as above. No loose bodies. Dictated by: Sohail Aguero M.D. on 01/27/2025 at 21:52 Approved by: Sohail Aguero M.D. on 01/27/2025 at 21:55
== END ==
LOC: MRI 13:53
PROVIDERS: Family Provider Orthopaedic Surgery; PCP Registered Nurse; Referring Provider Registered Nurse; Visit Provider Registered Nurse
DX: S83.242A Other tear of medial meniscus, current injury, left knee, initial encounter (principal); S83.282A Other tear of lateral meniscus, current injury, left knee, initial encounter; S83.512A Sprain of anterior cruciate ligament of left knee, initial encounter; S83.412A Sprain of medial collateral ligament of left knee, initial encounter; M25.462 Effusion, left knee; M71.22 Synovial cyst of popliteal space [Baker], left knee
CPT/HCPCS: 73721